=== PATIENT | male | born 1960 | race Caucasian/White ===

== ENCOUNTER → 2019-04-07 | Outpatient (CLI) | payer BC ==
[~2019-04-07] MED LIST: AMBIEN10 MG PO; AMITRIPTYLINE H10 MG PO; CIPRO500 MG PO; DESLORATADINE5 MG PO; DEXILANT60 MG PO; METRONIDAZOLE500 MG PO; MILK THISTLE PO; MOTRIN200 MG PO; PANTOPRAZOLE SO40 MG PO; RANITIDINE HCL300 MG PO; TAMSULOSIN HCL0.4 MG; TYLENOL WITH C1 EACH PO; XYZAL5 MG PO; [UNRECOGNIZED DRUG - OTHER] PO; [UNRECOGNIZED DRUG - OTHER] PO
--- NOTE | 2019-04-07 13:53 | Diagnostic Imaging Report ---
Exam: Left hip 2 views Clinical history: Left hip pain Findings: There is no evidence of acute fracture or malalignment. Degenerative changes are noted with narrowing of the superior joint space and juxta-articular sclerosis. The soft tissue is unremarkable. Impression: 1. No radiographic evidence of acute osseous injury. Degenerative changes as described. Signed by: Dr. Shaka Pearson MD on 04/07/2019 1:51 PM
== END ==
LOC: RAD 12:43
PROVIDERS: ATTEND Internal Medicine
DX: M25.552 Pain in left hip (principal)

== ENCOUNTER → 2021-05-05 | Outpatient (CLI) | payer BC | LOC: RAD 15:14 | PROVIDERS: ATTEND Internal Medicine | DX: M16.12 Unilateral primary osteoarthritis, left hip (principal); M17.12 Unilateral primary osteoarthritis, left knee ==